=== PATIENT | female | born 1990 | race Caucasian/White ===

== ENCOUNTER 2023-05-29 13:50 | Outpatient (AMB) | payer OTHER, SELFPAY ==
[2023-05-29 13:53] VITALS: BP 114/70; PULSE 67; O2SAT 99; BMI 23.3
--- NOTE | 2023-05-29 13:53 | A.OFFPC_ITS ---
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 Crime Specialist Required: No Allergies No Known Allergies Allergy (Verified 05/29/23 13:53) Medication List - Last Reconciled 05/29/23 by Krystle Vasquez MD [ADRENAL complex 2 caps PO .QD] [GI Microb-X 2 caps PO 2XD] [PRO Bio MED 100 1 cap PO .QD] [Sacharomyces Boulardii 10 1 cap PO .QD] [Colombian black radish PO BID] Tobacco use date assessed: 05/29/23 Dental Screening Dental Screen Date: 05/29/23 Did you have a dental visit in the last 12 months?: Yes Did you have a dental problem in the last 6 months where you did not have access to dental care?: No Was dental information given to patient?: Patient has dentist HPI Manifest Clerk Request Establish Care HPI Details 32-year-old female being seen for the 1s t time. went to [facility] 04/29-05/05/2023 had diarrhea - 05/03-2023, constipation then diarrhea- 4 days. has cold, no fevers, , no sore throat, non productive, PFSH Medical History (Updated 05/29/23 @ 14:18 by Krystle Vasquez MD) COVID-19 virus infection Family History (Updated 05/29/23 @ 14:12 by Krystle Vasquez MD) Mother Breast cancer, Onset Age: 63 Skin cancer Father Skin cancer Social History (Updated 05/29/23 @ 14:13 by Krystle Vasquez MD) Housing: Apartment Alcohol intake: current Comment: once a month 2 drinks Patient Tobacco Use Status: Never used Tobacco Years Smoked: no cigarettes, does marijuana service: No Current occupational status: employed Cognitive needs: No Hearing needs: No Vision needs: No Questionnaire PHQ-9 Over the last 2 weeks, how often have you been bothered by any of the following problems? 1. Little interest or pleasure in doing things: not at all 2. Feeling down, depressed, or hopeless: not at all 3. Trouble falling or staying asleep, or sleeping too much: not at all 4. Feeling tired or having little energy: not at all 5. Poor appetite or overeating: not at all 6. Feeling bad about yourself - or that you are a failure or have let yourself or your family down: not at all 7. Trouble concentrating on things, such as reading the newspaper or watching television: not at all 8. Moving or speaking so slowly that other people could have noticed. Or the opposite - being so fidgety or restless that you have been moving around a lot more than usual: not at all 9. Thoughts that you would be better off or of hurting yourself in some w ay: not at all Total score: 0 Depression Screening Interpretation: Negative Depression Screening Done: Yes Source: Developed by Drs. Ramiro Hendricks, Pat Medrano, Tavares Hodgson and colleagues, with an educational indy from [employer] Thrive Questionnaire Date Thrive assessed: 05/29/23 I am a: Patient What is your living situation today?: I have a steady place to live Within the past 12 months, did the food you bought not last and you didn't have the money to get more?: Never true Within the past 12 months, did you worry whether your food would run out before you got money to buy more?: Never true Do you have trouble paying for medicines?: No Do you have trouble getting transportation to medical appointments?: No Do you have trouble paying your heating and electricity bill?: No Do you have trouble taking care of your child, family member or friend?: No Do you have trouble with day-to-day activities such as bathing, preparing meals, shopping, managing finances, etc.?: No Are you currently unemployed and looking for a job?: No Are you interested in more education?: No Please select the resources that you would like help with: None THRIVE Score: 0 AUDIT C Alcohol Use Questionnaire (AUDIT-C) 1. How often do you have a drink containing alcohol?: Monthly or less 2. How many drinks containing alcohol do you have on a typical day when you are drinking?: 1 or 2 3. How often do you have six or more drinks on one occasion?: Never Total Score: 1 MARCELINA-7 AMB Questionnaire MARCELINA-7 Date MARCELINA - 7 assessed: 05/29/23 Feeling nervous, anxious, or on edge: 0 = Not at all Not being able to stop or control worryin = Not at all Worrying too much about different things: 0 = Not at all Trouble relaxin = Not at all Being so restless that it is hard to sit still: 0 = Not at all Becoming easily annoyed or irritable: 0 = Not at all Feeling afraid as if something awful might happen: 0 = Not at all Total MARCELINA-7 score (0-4 normal; 5-9 mild; 10-14 moderate; 15-21 severe): 0 Source: Developed by Drs. Ramiro Hendricks, Pat Medrano, Tavares Hodgson and colleagues, with an educational indy from [employer] Physical exam (Primary Care) Vital Signs: Last Vital Signs Pulse 67 05/29/23 13:53 BP 114/70 05/29/23 13:53 Pulse Ox 99 05/29/23 13:53 Oxygen Delivery Method Room Air 05/29/23 13:53 BMI result Body Mass Index 23.3 Tobacco/Smoking Status: Tobacco use Status Tobacco use date assessed 05/29/23 05/29/23 13:54 Patient Tobacco Use Status Never used Tobacco 05/29/23 13:54 PHQ-9: PHQ-9 Score PHQ-9: Total score 0 05/29/23 13:54 Depression Screening Interpretation: Negative Thrive Assessment: Date of Thrive Assessment Date Thrive assessed 05/29/23 05/29/23 13:54 Assessment and Plan Assessment & Plan (1) Cervical cancer screening: Code(s): Z12.4 - Encounter for screening for malignant neoplasm of cervix (2) Family history of hypercholesterolemia: Code(s): Z83.42 - Family history of familial hypercholesterolemia Orders: Orders Complete Blood Count Auto Diff Today Z83.42 - Family history of familial hypercholesterolemia Free T4 (Free Thyroxine) Today Z83.42 - Family history of familial hypercholesterolemia Comprehensive Met. Panel Today Z83.42 - Family history of familial hyperch olesterolemia Lipid Panel Today E78.00 - Pure hypercholesterolemia, unspecified, Z83.42 - Family history of familial hypercholesterolemia Thyroid Stimulating Hormone Today Z83.42 - Family history of familial hypercholesterolemia Vitamin B12 and Folate Today Z83.42 - Family history of familial hypercholesterolemia Vitamin D 25-OH Total Today Z83.42 - Family history of familial hypercholesterolemia Referrals BOBBIN WINDER Referral Z12.4 - Encounter for screening for malignant neoplasm of cervix Coding Level of Care Code New Pt Level 4 (79771) Diagnoses Cervical cancer screening Z12.4 Family history of hypercholesterolemia Z83.42
== END 2023-05-29 14:28 | disposition home or self-care (01) ==
PROVIDERS: PCP Internal Medicine; Visit Provider Internal Medicine
DX: Z12.4 Encounter for screening for malignant neoplasm of cervix (principal); Z83.42 Family history of familial hypercholesterolemia
CPT/HCPCS: 99204

== ENCOUNTER 2023-05-29 14:35 | Outpatient (REF) | payer OTHER, SELFPAY ==
[2023-05-29 15:09] LABS: MANUAL DIFF FLAG NO
[2023-05-29 15:31] LABS: Basophils Percent Auto 0.3 % (0-2); Eosinophils Absolute Auto 0.1 X10*3/uL (0.0-0.4); Eosinophils Percent Auto 1.1 % (0-4); Hematocrit 40.2 % (37.0-47.0); Hemoglobin 13.4 g/dl (12.0-16.0); Imm Gran Abs Auto 0.02 X10*3/uL (0.00-0.03); Imm Gran Pct Auto 0.3 % (0.0-0.4); Lymphocytes Absolute Auto 1.6 X10*3/uL (1.2-4.9); Lymphocytes Percent Auto 23.1 % (20-40); Mean Corpuscular HGB Conc 33.3 g/dl (31.0-35.0); Mean Corpuscular Hemoglobin 28.6 pg (27.0-33.0); Mean Corpuscular Volume 85.7 fL (80.0-98.0); Mean Platelet Volume 10.4 fL (9.4-12.3); Monocytes Absolute Auto 0.5 X10*3/uL (0.1-1.2); Neutrophils Absolute Auto 4.8 x10*3/uL (2.0-8.3); Neutrophils Percent Auto 68.2 % (45-73); Platelet Count 162 X10*3/uL (160-400); Red Blood Count 4.69 X10*6/uL (4.20-5.50); Red Cell Distribution Width 12.1 % (11.0-16.0)
[2023-05-29 16:01] LABS: Alanine Aminotransferase 14 U/L (0-31); Albumin Level 4.1 g/dL (3.5-5.0); Alkaline Phosphatase 51 U/L (39-117); Anion Gap 12 (12-20); Aspartate Amino Transferase 15 U/L (5-31); Bilirubin Total 0.7 mg/dL (0.0-1.0); Blood Urea Nitrogen 8 mg/dL (9-16); Calcium 9.1 mg/dL (8.4-10.2); Carbon Dioxide 26 mmol/L (22-29); Chloride 109 mmol/L (96-108); Cholesterol 132 mg/dL (<200); Estimated Glomerular Filt Rate > 60; Glucose Random 82 mg/dL (60-115); HDL Cholesterol 52 mg/dL (>40); LDL Cholesterol Calculated 69 mg/dL (<100); Potassium 4.2 mmol/L (3.3-5.1); Sodium 143 mmol/L (135-145); Total Protein 6.9 g/dL (6.5-8.0); Triglycerides 58 mg/dL (<150)
[2023-05-29 16:17] LABS: Free T4 (Free Thyroxine) 0.93 ng/dL (0.71-1.85); Thyroid Stimulating Hormone 1.04 uIU/mL (0.32-4.0)
[2023-05-29 16:31] LABS: Folate 7.7 ng/mL (> or = 4.0); Vitamin B12 582 pg/mL (200-900)
== END 2023-05-29 14:36 | disposition home or self-care (01) ==
LOC: HO.LAB 14:35
PROVIDERS: PCP Internal Medicine; Visit Provider Internal Medicine
DX: E78.00 Pure hypercholesterolemia, unspecified (principal); Z83.42 Family history of familial hypercholesterolemia
CPT/HCPCS: 36415; 80053; 80061; 82306; 82607; 82746; 84439; 84443; 85025

== ENCOUNTER 2023-08-24 14:26 | Outpatient (REF) | payer OTHER, SELFPAY ==
[2023-08-25 11:35] LABS: CT PCR NOT DETECTED (Not Detect.); NG PCR NOT DETECTED (Not Detect.)
[2023-08-25 12:50] LABS: BV Int Neg Control Negative (Negative); BV Int Pos Control Positive (Positive)
[2023-08-30 02:29] LABS: HPV mRNA E6/E7 rflx Not Detected (Not Detected)
== END 2023-08-24 14:27 | disposition home or self-care (01) ==
LOC: HO.LAB 14:26
PROVIDERS: PCP Internal Medicine; Visit Provider Advanced Practice Midwife
DX: Z01.419 Encounter for gynecological examination (general) (routine) without abnormal findings (principal); Z20.2 Contact with and (suspected) exposure to infections with a predominantly sexual mode of transmission; Z80.3 Family history of malignant neoplasm of breast
CPT/HCPCS: 0353U; 87480; 87510; 87624; 87660; 88142; 99385

== ENCOUNTER 2023-08-24 14:26 | Outpatient (AMB) | payer OTHER, SELFPAY ==
--- NOTE | 2023-08-24 14:27 | MHC.OFFVIS ---
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 They use condoms and her conscientious about it she has also been keeping track of her cycle and has done so for a long time and is been keeping more aware of changes in her cycle. Her mother had breast cancer diagnosed last year and she did have the bracket testing and she is negative and it is not considered familial. 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 [facility] Medical History COVID-19 virus infection Family History Mother Breast cancer, Onset Age: 63 Skin cancer Father Skin cancer Social History Housing: Apartment Alcohol intake: current Comment: once a month 2 drinks Patient Tobacco Use Status: Never used Tobacco Years Smoked: no cigarettes, does marijuana service: No Current occupational status: employed Cognitive needs: No Hearing needs: No Vision needs: No Female Reproductive History Menstrual Age of Menarche: 10 Duration of menses: 6-7 days Date of last menstrual period: 08/10/23 control method: none Total pregnancies: 0 History of abnormal pap smear: No (previous pap done 2010 negative per patient) Physical Exam Vital Signs: Last Vital Signs BP 110/60 08/24/23 14:32 BMI result Body Mass Index 23.5 Const General: healthy appearing, comfortable, no acute distress, well developed and alert Nutritional Appearance: average body habitus Orientation/consciousness: patient oriented x3 Limitations: no limitations HEENT Head: Yes normocephalic Neck Neck: Yes normal visual inspection Thyroid: Thyroid normal Chest Chest palpation & inspection: normal inspection of the chest Breast/axilla inspection: normal inspection of the breasts and normal inspection of the axillae Breast/axilla palpation: normal palpation of the breasts and normal palpation of the axillae Resp Effort & Inspection: normal respiratory effort GI Inspection: Yes normal to inspection, No Abdominal wall edema and No distended Palpation (GI): Soft to palpation and nontender General: Yes bladder normal to palpation External Female Exam: normal external appearance and normal appearance of the urethra Speculum Exam - Vagina: normal appearance of the vagina, normal palpation and normal vaginal discharge Speculum Exam - Cervix: normal appearance of the cervix, normal palpation and nontender Bimanual exam- vagina & uterus: normal bimanual exam, normal palpation, uterine size normal, bladder normal to palpation, consistency normal, normal palpation, uterine mobility normal, uterine shape normal, No Cervical tenderness present, non-tender and no cervical motion tenderness Bimanual Exam- Adnexa, other: normal adnexae, no masses, normal and No adnexal tenderness Neuro General: patient oriented x3 Assessment & Plan Assessment & Plan (1) Cervical cancer screening: Comment: pap done 08/24/23. Code(s): Z12.4 - Encounter for screening for malignant neoplasm of cervix Category: Medical (2) Well woman exam with routine gynecological exam: Code(s): Z01.419 - Encounter for gynecological examination (general) (routine) without abnormal findings Category: Medical (3) Encounter for screening examination for sexually transmitted disease: Code(s): Z11.3 - Encounter for screening for infections with a predominantly sexual mode of transmission Category: Medical (4) control counseling: Comment: Uses condoms and cycle awareness, happy with these. Code(s): Z30.09 - Encounter for other general counseling and advice on contraception Category: Medical (5) Family history of breast cancer in first degree relative: Comment: her mom was dx'd age 63, is BRCA neg. Code(s): Z80.3 - Family history of malignant neoplasm of breast Category: Medical Plan -----Discussed in this visit the following: healthy balanced diet, regular and consistent exercise, getting recommended health screens, doing the best she can for her particular health concerns, kegel exercises, pap smear screening and followup recommendations, mammography screening and SBE, normal changes in cycles in her life stage--- . Reviewed cycles and the changes to be aware of she is increasing her awareness and is happy with the self knowledge. 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 Discussed that normally mammograms started age 40 but if she is told otherwise then she should speak to her primary care provider about possibly getting an earlier screen. Her mom is BRCA negative so that is good Discussed potential future childbearing and increased risks with increased age, and also discussed all of the options in this area for childbearing. Coding Level of Care Code New Pt Prev Care 18-39yr([id number] Diagnoses Cervical cancer screening Z12.4 Well woman exam with routine gynecological exam Z01.419 Encounter for screening examination for sexually transmitted disease Z11.3 control counseling Z30.09 Family history of breast cancer in first degree relative Z80.3
[2023-08-24 14:32] VITALS: BP 110/60; BMI 23.5
== END 2023-08-24 15:33 | disposition home or self-care (01) ==
PROVIDERS: PCP Internal Medicine; Visit Provider Advanced Practice Midwife
DX: Z12.4 Encounter for screening for malignant neoplasm of cervix (principal); Z01.419 Encounter for gynecological examination (general) (routine) without abnormal findings; Z11.3 Encounter for screening for infections with a predominantly sexual mode of transmission; Z30.09 Encounter for other general counseling and advice on contraception; Z80.3 Family history of malignant neoplasm of breast
CPT/HCPCS: 99385

== ENCOUNTER 2024-02-27 12:36 | Outpatient (AMB) | payer OTHER, SELFPAY ==
--- NOTE | 2024-02-27 12:37 | A.OFFPC_ITS ---
Vital Signs 3 02/27/24 12:38 Height 5 ft 7 in Weight 146 lb 0.6 oz BMI 22.9 BP 112/60 Blood Pressure Location Lt brachial Position Sitting Pulse 76 Pulse Source Pulse Oximeter Pulse Oximetry (%) 99 Oxygen Delivery Method Room Air Intake Visit Reasons: PE Allergies No Known Allergies Allergy (Verified 02/27/24 12:38) Medication List - Last Reconciled 02/27/24 by Krystle Vasquez MD [ADRENAL complex 2 caps PO .QD] Tobacco use date assessed: 02/27/24 Dental Screening Dental Screen Date: 05/29/23 Did you have a dental visit in the last 12 months?: Yes Did you have a dental problem in the last 6 months where you did not have access to dental care?: No Was dental information given to patient?: Patient has dentist HPI PE 2 HPI0 Details 33-year-old female with coming in for ph ysical exam. Patient was last seen in 05/20/2023. [facility] Medical History (Updated 02/27/24 @ 12:50 by Krystle Vasquez MD) Acute gastroenteritis Cervical cancer screening Family history of hypercholesterolemia Well woman exam with routine gynecological exam Encounter for screening examination for sexually transmitted disease control counseling COVID-19 virus infection Family History Mother Breast cancer, Onset Age: 63 Skin cancer Father Skin cancer Social History Housing: Apartment Alcohol intake: current Comment: once a month 2 drinks Patient Tobacco Use Status: Never used Tobacco Years Smoked: no cigarettes, does marijuana service: No Current occupational status: employed Cognitive needs: No Hearing needs: No Vision needs: No Female Reproductive History Menstrual Age of Menarche: 10 Questionnaire PHQ-9 Over the last 2 weeks, how often have you been bothered by any of the following problems? 1. Little interest or pleasure in doing things: several days 2. Feeling down, depressed, or hopeless: several days 3. Trouble falling or staying asleep, or sleeping too much: several days 4. Feeling tired or having little energy: several days 5. Poor appetite or overeating: several days 6. Feeling bad about yourself - or that you are a failure or have let yourself or your family down: several days 7. Trouble concentrating on things, such as reading the newspaper or watching television: not at all 8. Moving or speaking so slowly that other people could have noticed. Or the opposite - being so fidgety or restless that you have been moving around a lot more than usual: not at all 9. Thoughts that you would be better off or of hurting yourself in some way: not at all Total score: 6 Depression Screening Interpretation: Negative Depression Screening Done: Yes 35339 - PHQ-9 Billing: Yes Source: Developed by Drs. Ramiro Hendricks, Pat Medrano, Tavares Hodgson and colleagues, with an educational indy from [employer]. Thrive Questionnaire Date Thrive assessed: 05/29/23 I am a: Patient What is your living situation today?: I have a steady place to live Within the past 12 months, did the food you bought not last and you didn't have the money to get more?: Never true Within the past 12 months, did you worry whether your food would run out before you got money to buy more?: Never true Do you have trouble paying for medicines?: No Do you have trouble getting transportation to medical appointments?: No Do you have trouble paying your heating and electricity bill?: No Do you have trouble taking care of your child, family member or friend?: No Do you have trouble with day-to-day activities such as bathing, preparing meals, shopping, managing finances, etc.?: No Are you currently unemployed and looking for a job?: No Are you interested in more education?: Yes Please select the resources that you would like help with: None Currently or been in a relationship where the following occur: No concerns reported THRIVE Score: 0 AUDIT C Alcohol Use Questionnaire (AUDIT-C) 1. How often do you have a drink containing alcohol?: Monthly or less 2. How many drinks containing alcohol do you have on a typical day when you are drinking?: 1 or 2 3. How often do you have six or more drinks on one occasion?: Less than monthly Total Score: 2 MARCELINA-7 AMB Questionnaire MARCELINA-7 Date MARCELINA - 7 assessed: 02/27/24 Feeling nervous, anxious, or on edge: 1 = Several days Not being able to stop or control worryin = Not at all Worrying too much about different things: 0 = Not at all Trouble relaxin = Not at all Being so restless that it is hard to sit still: 0 = Not at all Becoming easily annoyed or irritable: 1 = Several days Feeling afraid as if something awful might happen: 0 = Not at all Total MARCELINA-7 score (0-4 normal; 5-9 mild; 10-14 moderate; 15-21 severe): 2 Source: Developed by Drs. Ramiro Hendricks, Pat Medrano, Tavares Hodgson and colleagues, with an educational indy from [employer]. Review of Systems Const Denies poor appetite and Denies weakness Eyes Denies no additional complaints ENT Reports Normal hearing present, Denies dizziness, Denies nasal congestion, Denies tinnitus and Denies sore throat Card Denies chest pain, Denies syncope, Denies rapid heart rate and Denies dyspnea Resp Denies cough and Denies dyspnea GI Denies change in stool character, Reports constipation, Denies diarrhea, Denies nausea and Denies vomiting Denies urinary frequency, Denies difficulty voiding and Denies dysuria Neuro Reports Normal hearing present, Denies confusion, Denies dizziness, Denies syncope and Denies weakness Psych Denies confusion Physical exam (Primary Care) Vital Signs: Last Vital Signs Pulse 76 02/27/24 12:38 BP 112/60 02/27/24 12:38 Pulse Ox 99 02/27/24 12:38 Oxygen Delivery Method Room Air 02/27/24 12:38 BMI result Body Mass Index 22.9 Tobacco/Smoking Status: Tobacco use Status Tobacco use date assessed 02/27/24 02/27/24 12:46 Patient Tobacco Use Status Never used Tobacco 02/27/24 12:38 PHQ-9: PHQ-9 Score PHQ-9: Total score 6 02/27/24 12:46 Depression Screening Interpretation: Negative Thrive Assessment: Date of Thrive Assessment Date Thrive assessed 05/29/23 02/27/24 12:38 Currently or been in a relationship where the following occur: No concerns reported Const General: No confusion Orientation/consciousness: No confusion HENMT Head: Yes normocephalic Ears: external ears normal and TM's normal bilaterally Face and sinus: Yes normal facial exam Mouth: moist mucous membranes Throat: Yes tonsils normal Eyes Conjunctivae: conjunctivae normal Pupils: Equal, round and reactive pupils present and Pupil accommodation reflex normal Direct Ophthalmoscopy: normal light reflex Neck Neck: No lymphadenopathy Thyroid: Thyroid normal Chest Chest palpation & inspection: normal inspection of the chest Resp Effort & Inspection: normal respiratory effort and no audible wheezes Auscultation: clear to auscultation bilaterally, no crackles, no wheezes and lung sounds not diminished Cardio Rate: regular rate Rhythm: regular rhythm Peripheral pulses: radial pulses present and dorsalis pedis present GI Palpation (GI): no masses Auscultation: normal bowel sounds and normoactive bowel sounds Rectal Exam - Female: deferred Back/Spine/Pelvis Back/spine/pelvis image: 2 1. 2 cm round mass noted -n cyst Skin General skin exam: no rashes or lesions noted Rashes: no rashes Neuro General: No confusion Cranial nerves: Yes Equal, round and reactive pupils present and Yes Normal hearing present Cognition (Neuro): normal cognition Gait exam (Neuro): Normal gait present Motor exam (neuro): 5/5 motor strength present throughout Deep tendon reflexes (DTR's): Right brachioradialis reflex intensity grade: 2+, Left brachioradialis reflex intensity grade: 2+, Right patellar reflex intensity grade: 2+ and Left patellar reflex intensity grade: 2+ Extrem General: No edema Coding Level of Care Code Est Pt Prev Care 18-39y(65637) Diagnoses Annual physical exam Z00.00 Vitamin D deficiency E55.9 Assessment & Plan Assessment & Plan (1) Annual physical exam: Code(s): Z00.00 - Encounter for general adult medical examination without abnormal findings Category: Medical Plan: Patient is advised to eat healthy, keep well hydrated, keep active and have adequate sleep. (2) Vitamin D deficiency: Code(s): E55.9 - Vitamin D deficiency, unspecified Category: Medical Plan: Advised to take vitamin-D 3252-3172 units once a day
[2024-02-27 12:38] VITALS: BP 112/60; PULSE 76; O2SAT 99; BMI 22.9
== END 2024-02-27 13:06 | disposition home or self-care (01) ==
LOC: HO.HMCH 12:37
PROVIDERS: PCP Internal Medicine; Visit Provider Internal Medicine
DX: Z00.00 Encounter for general adult medical examination without abnormal findings (principal); E55.9 Vitamin D deficiency, unspecified

== ENCOUNTER → 2024-02-27 12:36 | Outpatient (BNVA) | payer OTHER, SELFPAY | PROVIDERS: PCP Internal Medicine; Visit Provider Internal Medicine | DX: Z00.00 Encounter for general adult medical examination without abnormal findings (principal); E55.9 Vitamin D deficiency, unspecified | CPT/HCPCS: 96127; 99395 ==

== ENCOUNTER 2024-07-12 18:21 | Emergency (ER) | payer OTHER, SELFPAY ==
[2024-07-12 18:35] VITALS: BP 129/78; PULSE 81; RESP 18; TEMP 36.8; O2SAT 97; BMI 23.5
--- NOTE | 2024-07-12 18:48 | ED_ITS ---
HPI - General Adult General Chief complaint: Extremity Injury, Lower Stated complaint: left ankle injury Time Seen by Provider: 07/12/24 18:48 Source: patient and other (patient's fiance) Mode of arrival: ambulatory (on crutches) Limitations: no limitations History of Present Illness ED Provider: Tran Ku PA-C HPI narrative: Patient is a 34 year old assigned female at with no reported medical history presenting to the emergency department today with a possible left Achilles injury. 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 Patient states that she went to stand and couldn't bear any weight on the left lower extremity. Patient states that she was seen at an Urgent Care and they recommended coming to the ER. Patient denies any dizziness, lightheadedness, abdominal pain, nausea, vomiting, fever, chills, blurry vision, double vision, loss of vision, chest pain, difficulty breathing, shortness of breath, back pain, night sweats, pain with urination, increased urinary frequency, increased urinary urgency, blood in her urine or stool, syncope or a near syncopal episode, bowel incontinence, bladder incontinence, or any other complaints at this time. Relieving factors: none Exacerbating factors: other (weight bearing on the left lower extremity) Associated symptoms: denies other symptoms Treatments prior to arrival: splint (posterior short leg applied by urgent care) Related Data Home Medications ?Medication ?Instructions ?Recorded ?Confirmed ADRENAL complex 2 cap PO .QD 05/29/23 02/27/24 Allergies Allergy/AdvReac Type Severity Reaction Status Date / Time No Known Allergies Allergy Verified 07/12/24 18:42 Review of Systems Constitutional: Constitutional: Reports no additional constitutional complaints, Denies chills, Denies fever(s) and Denies night sweats Eyes: Eyes: Reports no additional eye complaints, Denies blurry vision, Denies change in vision, Denies diplopia, Denies eye discharge, Denies loss of vision and Denies eye pain ENT: Denies dizziness Cardiovascular: Cardiovascular: Reports no additional cardiovascular complaints, Denies chest pain, Denies lightheadedness, Denies Loss of Consciousness and Denies dyspnea Respiratory: Respiratory: Reports no additional respiratory complaints and Denies dyspnea Gastrointestinal: Gastrointestinal: Reports no additional gastrointestinal complaints, Denies abdominal pain, Denies melena, Denies hematochezia, Denies change in bowel habits and Denies change in stool character Genitourinary: Genitourinary: Denies hematuria, Denies urinary frequency, Denies dysuria, Denies urinary incontinence, Denies urinary hesitancy and Denies urinary urgency Musculoskeletal: Musculoskeletal: Reports no additional musculoskeletal complaints, Denies numbness and Denies tingling Comments: left lower leg pain Neurologic: Denies dizziness, Denies loss of vision, Denies numbness and Denies tingling Psychiatric: Psychiatric: Reports no additional psychiatric complaints Endocrine: Endocrine: Reports no additional endocrine complaints Hematologic/Lymphatic: Hematologic/Lymphatic: Reports no additional hematologic/lymphatic complaints Allergic/Immunologic: Allergic/Immunologic: Reports no additional allergic/immunologic complaints PMFSH Past Medical History Attestation statement: The following information was validated with the patient. (all information validated with the patient's fiance) Source: old records reviewed, nursing notes reviewed and other (patient's fiance provided additional history and confirmed the history provided by the patient.) Medical History Acute gastroenteritis Cervical cancer screening Family history of hypercholesterolemia Well woman exam with routine gynecological exam Encounter for screening examination for sexually transmitted disease control counseling COVID-19 virus infection Family History Family History Mother Breast cancer, Onset Age: 63 Skin cancer Father Skin cancer Social History Social History Housing: Apartment Alcohol intake: current Comment: once a month 2 drinks Patient Tobacco Use Status: Never used Tobacco Years Smoked: no cigarettes, does marijuana Advance Directives: No Advance Directives Information Provided: No Do you have a plan to hurt others: No Plan service: No Current occupational status: employed Cognitive needs: No Hearing needs: No Vision needs: No Physical Exam ED Vital Signs: Vital Signs - 24 hr 07/12/24 18:35 Temperature 98.3 F Pulse Rate 81 Respiratory Rate 18 Blood Pressure 129/78 Pulse Oximetry 97 Oxygen Delivery Method Room Air BMI result Body Mass Index 23.5 Const General: cooperative, no acute distress, alert and awake Nutritional Appearance: well nourished Orientation/consciousness: patient oriented x3 Limitations: no limitations HENMT Head: Yes normal to inspection and Yes atraumatic Ears: hearing grossly normal bilaterally and external ears normal General nose exam: Normal external nose present, no nasal discharge noted and no epistaxis Face and sinus: Yes normal facial exam, No abrasion and No laceration Mouth: Normal oral and palatal mucosa present, no drooling and no muffled voice Eyes General: appearance normal, both eyes and all related structures Periorbital: periorbital findings normal Eyelids: Yes eyelids normal Conjunctivae: conjunctivae normal Pupils: Equal, round and reactive pupils present EOM: EOMs intact bilaterally Neck Neck: Yes normal visual inspection, Yes full ROM and Yes no lymphadenopathy Chest Chest palpation & inspection: normal inspection of the chest Resp Effort & Inspection: normal respiratory effort and able to speak in complete sentences GI Inspection: Yes normal to inspection Neuro General: patient oriented x3, moves all extremities and CN's II-XI intact bilaterally Cranial nerves: Yes Equal, round and reactive pupils present Cognition (Neuro): normal cognition Extrem Other: patient has a noticeable divot to her left posterior leg where her Achilles tendon inserts into the foot with a positive Wylie test. General: Yes capillary refill normal Psych Appearance: grossly normal Mental Status: mental status grossly normal Affect: normal affect Attitude: cooperative Thought process: Normal thought process present Thought content: Normal thought content present Insight: Good insight present (Psych) Procedures Orthopedic Splinting/Casting Injury #1: Side: left Lower Extremity Injury Location: lower leg Lower Extremity Immobilizer: posterior splint (45 degrees in plantar flexion) Medical Decision Making Medical Decision Making MDM Narrative: Patient is a 34 year old assigned female at with no reported medical history presenting to the emergency department today with a possible left Achilles injury. Patient's physical exam was as noted in the physical exam portion of this note. Patient's clinical presentation is most consistent with a rupture of the left Achilles tendon. I explained my physical exam findings to the patient and the patient's fiance. I answered all questions asked by the patient and the patient's fiance. Patient's left lower leg was placed in a posterior short leg splint with the foot in 45 degrees plantar flexion, without incident. Patient's PMS was intact prior to and after splint placement. Patient already had crutches with her which she demonstrated she could appropriately use. I spoke to the orthopedic team who agreed with splint and follow up outpatient plan. I stressed the importance of the patient taking her medication as directed (either prescribed or as the over the counter packaging recommends). I stressed the importance of the patient following up with her primary care provider and an orthopedic provider. I stressed the importance of the patient returning to the emergency department immediately if her symptoms were to worsen or if she were to develop any dizziness, shortness of breath, difficulty breathing, chest pain, blurry vision, loss of vision, nausea, vomiting, abdominal pain, fever, chills, back pain, or any other complaints. Patient and the patient's fiance verbalized agreement and understanding with this treatment plan and discharge. Differential Diagnosis Differential Diagnoses: The differential diagnosis associated with the presentation includes Achilles tendon rupture Achilles tendon injury Admission/Observation Consideration of admission/observation: Escalation of care including admission/observation considered Patient would have been admitted to the hospital had her work up had any findings where hospital admission was appropriate and her clinical presentation warranted hospital admission. Consult Healthcare Provider Management of the patient was discussed with: Program Manager Slp (spoke with the orthopedic team as noted in the MDM Rationale portion of this note.) Independent Historian Clinical information obtained from an independent historian. History obtained from or confirmed by: Other (patient's fiance provided additional history and confirmed the history provided by the patient.) Tests considered The following testing was considered but not selected: I considered obtaining an ultrasound of the left lower extremity to confirm an Achilles rupture tendon / injury however, the patient's clinical presentation is consistent with the diagnosis without further imaging. I discussed this with the patient and her fiance who verbalized understanding and agreement. Discharge Plan Discharge Clinical Impression: Achilles tendon rupture Patient Disposition: Home, Self-Care Instructions: Crutch Instructions (ED), Achilles Tendon Rupture (ED) Additional Instructions: Do NOT bear any weight on the left lower extremity. Do NOT get your splint wet. Do NOT remove your splint. If you have any change in sensation, movement, or color of your left toes - you may loosen the outer PHANI wraps. If you find yourself loosening the PHANI wraps to the point of seeing the white splint material underneath - STOP and proceed to your closest Emergency Department, immediately. Follow up with your primary care provider and the orthopedic team. Return to the emergency department immediately if your symptoms worsen or if you develop any numbness, tingling, dizziness, shortness of breath, difficulty alirio thing, chest pain, blurry vision, loss of vision, nausea, vomiting, abdominal pain, fever, chills, back pain, or any other complaints. Please see the information below about our Patient Portal. If you are not yet enrolled in the [facility] Patient Portal, you will receive an enrollment email invitation following your visit to any [facility] setting. You may also self-enroll in the Patient Portal by visiting our website: [email or web address] The following information is required to access the Patient Portal: - Your [facility] Medical Record Number - Your personal home email address (must match what is in your electronic medical record, Registration staff can assist with this) - Name - Date of Capabilities of the Patient Portal: - Message some providers - View upcoming appointments - Access your health summary, medical history, and visit history - View current conditions and allergies - View procedure and lab results - View your medications, including guidelines, side effects, and precautions - Complete pre-appointment questionnaires requested by your provider - Ready summary reports of your office visits and procedures To access the Patient Portal Mobile Priya, follow these directions: - Search Curiously in the Priya Store or Curetis Store - Download the Priya - Search for [facility] - Enter your login/password Prescriptions: No Action ADRENAL complex 2 cap PO .QD Referrals: [facility] Orthopedic Surgeons [Provider Group] (Call to establish and follow up with the orthopedic team. ) Pedro,Krystle Westbrook MD [Primary Care Provider] - Stand Alone Forms: Work/School Release Print Language: Chinese
[2024-07-12 19:22] VITALS: BP 129/78; PULSE 81; RESP 18; TEMP 36.8; O2SAT 97
== END 2024-07-12 19:23 | disposition home or self-care (01) ==
PROVIDERS: Emergency Provider Emergency Medicine; PCP Internal Medicine
DX: S86.012A Strain of left Achilles tendon, initial encounter (principal); M79.605 Pain in left leg; X50.3XXA Overexertion from repetitive movements, initial encounter; Y93.41 Activity, dancing; Y93.9 Activity, unspecified; Y92.9 Unspecified place or not applicable; Y99.8 Other external cause status; Z79.899 Other long term (current) drug therapy
CPT/HCPCS: 29505; 99282; 99284

== ENCOUNTER 2024-07-15 09:35 | Outpatient (AMB) | payer OTHER, SELFPAY ==
--- NOTE | 2024-07-15 09:42 | MHC.OFFVIS ---
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 She states that she is feeling a lot of soreness. Denies numbness and tingling in her toes, however when the first injury happened she had tingling/warm sensation in her heal. 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 Jennifer florence is a 34-year-old female with no past medical history. She presents to the office today for evaluation of a left Achilles tendon rupture that occurred on 07/12/2024. 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 She reports that on 07/12/2024 she was performing a dance combination while leaving from her left foot and landing again on the left foot. During this attempt the patient felt a pop in the calf followed by pain. She was able to finish instructing the dance class for the evening. She presented to the emergency department where upon further exam she was noted to have a palpable deformity at the Achilles tendon and instructions she had a Achilles tendon rupture. She was placed in a posterior splint with the foot in plantar flexion and instructed to follow up with orthopedics outpatient for further evaluation and treatment. [facility] Medical History Acute gastroenteritis Cervical cancer screening Family history of hypercholesterolemia Well woman exam with routine gynecological exam Encounter for screening examination for sexually transmitted disease control counseling COVID-19 virus infection Family History Mother Breast cancer, Onset Age: 63 Skin cancer Father Skin cancer Social History (Updated 07/15/24 @ 09:45 by Troy Morales) Housing: Apartment Alcohol intake: current Comment: once a month 2 drinks Patient Tobacco Use Status: Never used Tobacco Years Smoked: no cigarettes, does marijuana service: No Current occupational status: employed 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 Cognitive needs: No Hearing needs: No Vision needs: No Female Reproductive History Menstrual Age of Menarche: 10 Review of Systems Const All systems reviewed & are unremarkable except as noted in HPI and below Physical Exam Vital Signs: BMI result Body Mass Index 23.5 Const General: cooperative, healthy appearing and no acute distress Resp Effort & Inspection: normal respiratory effort and able to speak in complete sentences Cardio Rate: regular rate Peripheral pulses: Peripheral pulses 2+ throughout Skin Lesions: no lesions Rashes: no rashes Extrem Other: Left lower extremity visible and palpable deformity at the Achilles tendon attachment. Tenderness to palpation over the associated area. Positive Wylie's test. NVI. Office Procedures Casting/Splints [id number] Leg splint application Procedure code (CPT) selection complete Assessment & Plan Assessment & Plan (1) Acute rupture of Achilles tendon: Code(s): S86.019A - Strain of unspecified Achilles tendon, initial encounter Category: Medical Plan Ms. Jennifer florence is a 34-year-old female with no past medical history. She presents to the office today for evaluation of a left Achilles tendon rupture that occurred on 07/12/2024. 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 She reports that on 07/12/2024 she was performing a dance combination while leaving from her left foot and landing again on the left foot. During this attempt the patient felt a pop in the calf followed by pain. She was able to finish instructing the dance class for the evening. She presented to the emergency department where upon further exam she was noted to have a palpable deformity at the Achilles tendon and instructions she had a Achilles tendon rupture. She was placed in a posterior splint with the foot in plantar flexion and instructed to follow up with orthopedics outpatient for further evaluation and treatment. While in the office today, Dr. Arceo was available to see the patient with me in the office in a collaborative treatment plan was created. The patient is interested in seeing a foot and ankle specialist for this as her professional career revolves around dancing. We will fully support this patient and trying to advocate for an appointment at [facility] with Dr. Dinh for further evaluation and treatment. I placed a stat referral while in the office today. Our office will reach out to their office to facilitate an urgent appointment this week. The patient was educated on the urgency of surgical intervention if she so chooses to move forward. I provided her with my business card as well as Dr. Arceo's if she has any questions she can reach out to us. Patient was placed back into a custom-molded posterior splint held in plantar flexion. Orders: Referrals Orthopedics Referral S86.019A - Strain of unspecified Achilles tendon, initial encounter Coding Level of Care Code New Pt Level 4 (20905) Diagnoses Acute rupture of Achilles tendon S86.019A CPT Codes Splint - CPT: 74525-Jomlg Leg splint application ([id number])
[2024-07-15 09:46] VITALS: BMI 23.5
== END 2024-07-15 10:38 | disposition home or self-care (01) ==
LOC: HO.HOS 09:36
PROVIDERS: PCP Internal Medicine; Visit Provider Physician Assistant
DX: S86.012A Strain of left Achilles tendon, initial encounter (principal)
CPT/HCPCS: 29515; 99204

== ENCOUNTER → 2024-07-15 09:35 | Outpatient (BNVA) | payer OTHER, SELFPAY | PROVIDERS: PCP Internal Medicine; Visit Provider Physician Assistant | DX: S86.019A Strain of unspecified Achilles tendon, initial encounter (principal) | CPT/HCPCS: 29515; 99202 ==

== ENCOUNTER 2024-08-26 11:21 | Outpatient (AMB) | payer OTHER, SELFPAY ==
--- NOTE | 2024-08-26 11:56 | MHC.OFFVIS ---
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 She and her partner use condoms for control and she has no concerns whatsoever about STDs and she had a normal Pap smear last year.. Her mother is in year 2 of her breast cancer recovery journey. She tested BRCA negative and the diagnosis who is in her early 60s. 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 This year doing a jump on July 12 she tore her left Achilles tendon 3/[address]. She did not need surgery she currently is immobilized with a boot and getting physical therapy and journeying through the healing and recovery process. [facility] Medical History (Updated 08/26/24 @ 12:55 by Lakeshia Demarco CNM) Well woman exam with routine gynecological exam Acute gastroenteritis Cervical cancer screening Family history of hypercholesterolemia Encounter for screening examination for sexually transmitted disease control counseling COVID-19 virus infection Family History Mother Breast cancer, Onset Age: 63 Skin cancer Father Skin cancer Social History Housing: Apartment Alcohol intake: current Comment: once a month 2 drinks Patient Tobacco Use Status: Never used Tobacco Years Smoked: no cigarettes, does marijuana Patient : No service: No Current occupational status: employed 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 Cognitive needs: No Hearing needs: No Vision needs: No Female Reproductive History Menstrual Age of Menarche: 10 Duration of menses: 3-5 days Date of last menstrual period: 08/12/24 control method: none Total pregnancies: 0 Date of last pap smear: 08/24/23 (negative pap smear, negative p) History of abnormal pap smear: No Physical Exam Vital Signs: Last Vital Signs BP 120/70 08/26/24 12:01 BMI result Body Mass Index 24.3 Const General: healthy appearing, comfortable, no acute distress, well developed and alert Nutritional Appearance: average body habitus Orientation/consciousness: patient oriented x3 Limitations: no limitations HEENT Head: Yes normocephalic Neck Neck: Yes normal visual inspection Thyroid: Thyroid normal Chest Chest palpation & inspection: normal inspection of the chest Breast/axilla inspection: normal inspection of the breasts and normal inspection of the axillae Breast/axilla palpation: normal palpation of the breasts and normal palpation of the axillae Resp Effort & Inspection: normal respiratory effort GI Inspection: Yes normal to inspection, No Abdominal wall edema and No distended Palpation (GI): Soft to palpation and nontender Other: External exam within normal limits vagina pink and moist with normal healthy appearing whitish mucus cervix nulliparous pink smooth healthy appearing with normal clear white mucus, consistent with very recent ovulation, uterus small mobile nontender anteverted to midposition adnexa nontender good muscle tone with Kegel. General: Yes bladder normal to palpation External Female Exam: normal external appearance and normal appearance of the urethra Speculum Exam - Vagina: normal appearance of the vagina, normal palpation and normal vaginal discharge Speculum Exam - Cervix: normal appearance of the cervix, normal palpation and nontender Bimanual exam- vagina & uterus: normal bimanual exam, normal palpation, uterine size normal, bladder normal to palpation, consistency normal, normal palpation, uterine mobility normal, uterine shape normal, No Cervical tenderness present, non-tender and no cervical motion tenderness Bimanual Exam- Adnexa, other: normal adnexae, no masses, normal and No adnexal tenderness Neuro General: patient oriented x3 Assessment & Plan Assessment & Plan (1) Family history of breast cancer in first degree relative: Comment: her mom was dx'd age 63, is BRCA neg. Code(s): Z80.3 - Family history of malignant neoplasm of breast Category: Medical (2) Acute rupture of Achilles tendon: Comment: In her recovery process, wearing boot, getting physical therapy in [place]. Code(s): S86.019A - Strain of unspecified Achilles tendon, initial encounter Category: Medical (3) Well woman exam with routine gynecological exam: Code(s): Z01.419 - Encounter for gynecological examination (general) (routine) without abnormal findings Category: Medical Plan -----Discussed in this visit the following: healthy balanced diet, regular and consistent exercise, getting recommended health screens, doing the best she can for her particular health concerns, kegel exercises, pap smear screening and followup recommendations, mammography screening and SBE, normal changes in cycles in her life stage--- . Discussed her healing process and its lessons that it is teaching her and that she shared, Is no concerns at all about STIs Pap smear was negative last year so no need to repeat that. She is happy with condom use. She and her fiance have a plan to at some point when they are stable in their marriage start childbearing but not yet. Mammograms would start for her at age 40 even with maternal history, unless there is new information in the future. Coding Level of Care Code Est Pt Prev Care 18-39y(28891) Diagnoses Family history of breast cancer in first degree relative Z80.3 Acute rupture of Achilles tendon S86.019A Well woman exam with routine gynecological exam Z01.419
[2024-08-26 12:01] VITALS: BP 120/70; BMI 24.3
== END 2024-08-26 12:52 | disposition home or self-care (01) ==
LOC: HO.HWS 11:22
PROVIDERS: PCP Internal Medicine; Visit Provider Advanced Practice Midwife
DX: Z01.419 Encounter for gynecological examination (general) (routine) without abnormal findings (principal); Z80.3 Family history of malignant neoplasm of breast
CPT/HCPCS: 99395; 99459

== ENCOUNTER → 2024-08-26 11:21 | Outpatient (BNVA) | payer OTHER, SELFPAY | PROVIDERS: PCP Internal Medicine; Visit Provider Advanced Practice Midwife | DX: Z01.419 Encounter for gynecological examination (general) (routine) without abnormal findings (principal); S86.019A Strain of unspecified Achilles tendon, initial encounter; X58.XXXA Exposure to other specified factors, initial encounter; Y93.9 Activity, unspecified; Y92.9 Unspecified place or not applicable; Y99.9 Unspecified external cause status; Z80.3 Family history of malignant neoplasm of breast | CPT/HCPCS: 99395; 99459 ==

== ENCOUNTER 2024-12-17 09:52 | Outpatient (AMB) | payer OTHER, SELFPAY ==
--- OUTSIDE RECORDS SUMMARY | 2024-12-13 14:15 | XMS_ITS | Encounter Summary ---
Author Organization [facility] Address [address] [place] [address] Phone Care Team Providers Care Grain Thresher Name Role Phone Krystle Vasquez MD Primary Care Provider [phone] Reason for Visit * Physical Therapy (Within 3 days (urgent)) - Authorized Specialty Diagnoses / Procedures Referred By Contac t Referred To Contact Physical Therapy Diagnoses Rupture of left Achilles tendon, initial encounter Nathan Shea MD Phone: tel: fax: [email or web address] [address] [address] Phone: tel: Referral ID Status Reason Start Date Expiration Date V isits Requested Visits Authorized [id number] Authorized 07/22/2024 04/30/2025 29 29 Encounter Details Date Type Department Care Team (Latest Contact Info) Description 12/13/2024 2:15 PM EDT Office Visit [facility] [address] [place] [address] Nathan Shea MD [address] [place] [address] [facility] [place] [address] [email or web address] Keven Kennedy, PT [address] [place] [address] [email or web address] Acute left ankle pain (Primary Dx) Social History Tobacco Use Types Packs/Day Years [...] as of this encounter Plan of Treatment Upcoming Encounters Date Type Department Care Team (Late st Contact Info) Description 12/27/2024 11:45 AM EDT Office Visit [address] [address] Nathan Shea MD 4 [facility], [place] [address] Keven Bradley, PT [address] [place] [address] [email or web address] 02/03/2025 11:00 AM EDT Office Visit [address] [address] Keven Bradley, PT [address] [place] [address] [email or web address] 02/24/2025 3:45 PM EDT Office Visit [address] [address] Nathan Shea MD [address] [place] [address] Orthopedics [facility], [place], [place] [id number] [email or web address] Keven Bradley, PT [address] [place] [address] [email or web address] documented as of this encounter Visit Diagnoses Diagnosis Acute left ankle pain- Primary documented in this encounter Care Teams Grain Thresher Relationship Specialty Start Date End Date Pedro, Krystle Jay MD [address] [place] [address] [place] [phone] PCP - General Internal Medicine 07/12/24 documented as of this encounter Additional Source Comments The information contained in this document represents components of the legal health record. It is not the complete legal health record.[facility]
--- NOTE | 2024-12-17 09:54 | MHC.PC.OV ---
Vital Signs 12/17/24 09:55 Height 5 ft 7 in Weight 162 lb BMI 25.4 BP 110/62 Blood Pressure Location Lt brachial Position Sitting Pulse 71 Pulse Source Pulse Oximeter Pulse Oximetry (%) 98 Oxygen Delivery Method Room Air Intake Visit Reasons: Eye Infection Allergies No Known Allergies Allergy (Verified 12/17/24 09:56) Tobacco use date assessed: 12/17/24 Dental Screening Dental Screen Date: 12/17/24 Did you have a dental visit in the last 12 months?: Yes Did you have a dental problem in the last 6 months where you did not have access to dental care?: No Was dental information given to patient?: Patient has dentist HPI Eye Infection HPI Details eye infection L months ago - [facility] Medical History (Updated 12/17/24 @ 10:18 by Krystle Vasquez MD) Well woman exam with routine gynecological exam Acute gastroenteritis Cervical cancer screening Family history of hypercholesterolemia Encounter for screening examination for sexually transmitted disease control counseling COVID-19 virus infection Family History (Updated 12/17/24 @ 09:57 by Ghazal Hilario CMA) Mother Breast cancer, Onset Age: 63 Skin cancer Father Skin cancer Social History Housing: Apartment Alcohol intake: current Comment: once a month 2 drinks Patient Tobacco Use Status: Never used Tobacco Tobacco use type: Cigarette Years Smoked: no cigarettes, does marijuana e-Cigarette/Vaping Use: Never Used Second Hand Smoke Exposure: No service: No Current occupational status: employed 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 1. Little interest or pleasure in doing things: several days 2. Feeling down, depressed, or hopeless: not at all 3. Trouble falling or staying asleep, or sleeping too much: several days 4. Feeling tired or having little energy: several days 5. Poor appetite or overeating: several days 6. Feeling bad about yourself - or that you are a failure or have let yourself or your family down: not at all 7. Trouble concentrating on things, such as reading the newspaper or watching television: not at all 8. Moving or speaking so slowly that other people could have noticed. Or the opposite - being so fidgety or restless that you have been moving around a lot more than usual: not at all 9. Thoughts that you would be better off or of hurting yourself in some way: not at all Total score: 4 Depression Screening Interpretation: Positive Depression Screening Done: Yes Source: Developed by Drs. Ramiro Hendricks, Pat Medrano, Tavares Hodgson and colleagues, with an educational indy from [employer]. Thrive Questionnaire Date Thrive assessed: 12/17/24 I am a: Patient What is your living situation today?: I have a steady place to live Within the past 12 months, did the food you bought not last and you didn't have the money to get more?: Never true Within the past 12 months, did you worry whether your food would run out before you got money to buy more?: Never true Do you have trouble paying for medicines?: No Do you have trouble getting transportation to medical appointments?: No Do you have trouble paying your heating and electricity bill?: No Do you have trouble taking care of your child, family member or friend?: No Do you have trouble with day-to-day activities such as bathing, preparing meals, shopping, managing finances, etc.?: No Are you currently unemployed and looking for a job?: No Are you interested in more education?: No Please select the resources that you would like help with: None Currently or been in a relationship where the following occur: No concerns reported THRIVE Score: 0 AUDIT C Alcohol Use Questionnaire (AUDIT-C) 1. How often do you have a drink containing alcohol?: 2-4 times a month 2. How many drinks containing alcohol do you have on a typical day when you are drinking?: 1 or 2 3. How often do you have six or more drinks on one occasion?: Never Total Score: 2 MARCELINA-7 AMB Questionnaire MARCELINA-7 Date MARCELINA - 7 assessed: 12/17/24 Feeling nervous, anxious, or on edge: 1 = Several days Not being able to stop or control worryin = Not at all Worrying too much about different things: 0 = Not at all Trouble relaxin = Not at all Being so restless that it is hard to sit still: 0 = Not at all Becoming easily annoyed or irritable: 0 = Not at all Feeling afraid as if something awful might happen: 0 = Not at all Total MARCELINA-7 score (0-4 normal; 5-9 mild; 10-14 moderate; 15-21 severe): 1 Source: Developed by Drs. Ramiro Hendricks, Pat Medrano, Tavares Hodgson and colleagues, with an educational indy from [employer]. Physical exam (Primary Care) Vital Signs: Last Vital Signs Pulse 71 12/17/24 09:55 BP 110/62 12/17/24 09:55 Pulse Ox 98 12/17/24 09:55 Oxygen Delivery Method Room Air 12/17/24 09:55 Care Plan Goal for BP management: No conjunctival hemorrhage noted mild left punctum swelling on eye exam BMI result Body Mass Index 25.4 Tobacco/Smoking Status: Tobacco use Status Tobacco use date assessed 12/17/24 12/17/24 10:02 Patient Tobacco Use Status Never used Tobacco 12/17/24 10:02 Tobacco use type Cigarette 12/17/24 10:02 e-Cigarette/Vaping Use Never Used 12/17/24 10:02 PHQ-9: PHQ-9 Score PHQ-9: Total score 4 12/17/24 10:02 Depression Screening Interpretation: Positive Thrive Assessment: Date of Thrive Assessment Date Thrive assessed 12/17/24 12/17/24 10:02 Currently or been in a relationship where the following occur: No concerns reported Const General: alert; No acute distress Eyes Conjunctivae: conjunctivae normal Resp Auscultation: clear to auscultation bilaterally Cardio Rate: regular rate Rhythm: regular rhythm GI Inspection: Yes normal to inspection Extrem General: Yes normal to inspection and No edema Coding Level of Care Code Est Pt Level 3 (97007) Diagnoses Acute rupture of Achilles tendon S86.019A Conjunctiva disorder H11.9 Swelling of lacrimal duct with fluid H04.89 Assessment & Plan Assessment & Plan (1) Acute rupture of Achilles tendon: Comment: Left 06/2024 In her recovery process, wearing boot, getting physical therapy in [place]. Code(s): S86.019A - Strain of unspecified Achilles tendon, initial encounter Category: Medical Plan: 5 .5 month better no need for surgery (2) Conjunctiva disorder: Code(s): H11.9 - Unspecified disorder of conjunctiva Category: Medical (3) Swelling of lacrimal duct with fluid: Comment: left Code(s): H04.89 - Other disorders of lacrimal system Category: Medical Plan History of Present Illness The patient is a 34-year-old female presenting with an eye infection and concerns regarding residual symptoms. The patient experienced an eye infection approximately one month ago, for which she sought care at an urgent care facility. She was prescribed amoxicillin and an ointment, which led to improvement by the third day of treatment. However, she continues to experience residual redness and swelling in the lower lid of the left eye. The patient has a history of a left Achilles tendon rupture, which occurred on July 12, 2024. She was referred to an computer network specialist and was managed with a custom-molded posterior splint in plantar flexion, avoiding the need for surgery. The patient reports being approximately five and a half months into recovery. The patient's last blood work in May 2023 showed normal results except for low vitamin D levels. Health Maintenance - Vitamin D supplementation discussed due to low levels in previous blood work. Social History Review of Systems - Ophthalmologic: Reports residual redness and swelling in the lower lid of the left eye. Denies blurred vision currently, but experienced it two weeks ago. - Respiratory: Reports mild congestion. Denies sneezing or significant nasal symptoms. Physical Exam Results - Labs: Normal blood count, electrolytes, renal function, blood sugar, liver function, and thyroid function. Low vitamin D levels noted. Plan The patient will be referred to an injection specialist for further evaluation of the persistent eye symptoms, as scheduling with local specialists may take time. In the interim, the patient is advised to use allergy medications to manage congestion and potential eye irritation. For the left Achilles tendon rupture, the patient will continue with the current recovery plan, as surgical intervention was not required. The patient is approximately five and a half months into recovery and should continue with follow-up as needed. Vitamin D supplementation is recommended due to previously noted low levels. Patient was informed and verbally consented to the use of an ambient scribe for clinic note documentation during this visit. Discussion Notes I discussed with the patient the need for an ophthalmology referral due to the persistent eye symptoms, emphasizing the potential delay in scheduling with local specialists. We also talked about using allergy medications to alleviate congestion and eye irritation. Regarding the Achilles tendon rupture, I confirmed that the current non-surgical management is appropriate and encouraged continued follow-up. I recommended vitamin D supplementation due to low levels identified in previous blood work. Patient Instructions - Follow up with an injection specialist for persistent eye symptoms. - Use allergy medications to help with congestion and eye irritation. - Continue with the current recovery plan for the Achilles tendon rupture. - Start vitamin D supplementation as discussed. Orders: Referrals Ophthalmology Referral H04.89 - Other disorders of lacrimal system, H11.9 - Unspecified disorder of conjunctiva
[2024-12-17 09:55] VITALS: BP 110/62; PULSE 71; O2SAT 98; BMI 25.4
== END 2024-12-17 10:23 | disposition home or self-care (01) ==
LOC: HO.HMCH 09:53
PROVIDERS: PCP Internal Medicine; Visit Provider Internal Medicine
DX: S86.019A Strain of unspecified Achilles tendon, initial encounter (principal); H11.9 Unspecified disorder of conjunctiva; H04.89 Other disorders of lacrimal system

== ENCOUNTER → 2024-12-17 09:52 | Outpatient (BNVA) | payer OTHER, SELFPAY | PROVIDERS: PCP Internal Medicine; Visit Provider Internal Medicine | DX: S86.012D Strain of left Achilles tendon, subsequent encounter (principal); H11.9 Unspecified disorder of conjunctiva; H04.89 Other disorders of lacrimal system; X58.XXXD Exposure to other specified factors, subsequent encounter | CPT/HCPCS: 99212 ==

== ENCOUNTER 2025-04-14 17:39 | Outpatient (AMB) | payer BC, SELFPAY ==
--- OUTSIDE RECORDS SUMMARY | 2024-07-12 15:20 | XMS_ITS | Encounter Summary ---
Author Organization [facility] Address [address] [place] [id number] Phone Care Team Providers Care Pantograph Machine Set Up Operator Name Role Phone Krystle Vasquez MD Primary Care Provider [phone] Encounter Details Date Type Department Care Team (Late st Contact Info) Description 07/12/2024 4:20 PM EDT Hospital Encounter [facility] [address] [place] [id number] Jolene Parada, MACHINE DEICER ELEMENT WINDER [address] [place] [address] [email or web address] Social History Tobacco Use Types Packs/Day Years Used Date Smoking Tobacco: Never Smokeless Tobacco: Never Alcohol Use Standard Drinks/Week Comments Not Currently 0 (1 standard drink = 0.6 oz pur e alcohol) Education Answer Date Recorded Are you interested in more education? Not on marco e 07/12/2024 Are you concerned about learning? Not on file 07/12/2024 No 07/12/2024 No 07/12/2024 Digital Access Answer Date Recorded No 07/12/2024 No 07/12/2024 Reliable internet access at home? Not on file 07/12/2024 Device with a working camera? Not on file Comments No Sex and Gender Information Value Date Recorded Sex Assigned at Female 07/17/2024 5:09 PM EDT Legal Sex Female 4:03 PM EDT Gender Identity Female 07/17/2024 5:09 PM EDT Sexual Orientation Straight 07/17/2024 5: 09 PM EDT documented as of this encounter Plan of Treatment Not on file documented as of this encounter Procedures Procedure Name Priority Date/Time Associated Diagnosis Comments XR ANKLE 3 OR MORE VIEWS (LEFT) Urgent/patient waiting 07/12/2024 4:27 PM EDT Acute left ankle pain documented in this encounter Results * XR ANKLE 3 OR MORE VIEWS (LEFT) (07/12/2024 4:27 PM EDT) Anatomical Region Laterality Modality Ankle Left Computed Radiogr aphy 07/12/2024 5:06 PM EDT Impressions 07/12/2024 5:08 PM EDT No fracture or dislocation. Narrative 07/12/2024 5:08 PM EDT XR ANKLE 3 OR MORE VIEWS (LEFT) Referring clinician's provided indication for this examination in Epic: Pain COMPARISON: None FINDINGS: No fracture. Normal alignment. Symmetric ankle mortise. Normal joint spaces. No soft tissue swelling or ankle effusion. Procedure Note Eleuterio Verduzco MD - 07/12/2024 XR ANKLE 3 OR MORE VIEWS (LEFT) Referring clinician's provided indication for this examination in Epic:Pain COMPARISON: None FINDINGS: No fracture. Normal alignment. Symmetric ankle mortise. Normal jointspaces. No soft tissue swelling or ankle effusion. IMPRESSION: No fracture or dislocation. Jolene Parada MACHINE DEICER ELEMENT WINDER IMG XR LOWER EXTREMITY Final Result documented in this encounter Visit Diagnoses Not on filedocumented in this encounter Care Teams Pantograph Machine Set Up Operator Relationship Specialty Start Date End Date Krystle Vasquez MD [address] [place] [address] Drive [address] [place] [id number] PCP - General Internal Medicine 07/12/24 documented as of this encounter Additional Source Comments The information contained in this document represents components of the legal health record. It is not the complete legal health record.[facility]
--- NOTE | 2025-04-14 17:41 | A.OFFPC_ITS ---
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 She has a history of a ruptured and tender kidney. Her last visit was in November 2024. The patient is followed by ophthalmology for vitreomacular adhesion and was last seen in November. She reports non-significant floaters. She has also experienced conjunctivitis. Blood work from May showed a normal blood count, electrolytes, renal function, sugar, and liver function. At that time, her cholesterol was normal, but she had low vitamin B and vitamin D levels. Health Maintenance - The patient presents for a physical ex am. 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 Social History Results - Labs: Blood work from May revealed a normal blood count, electrolytes, renal function, sugar, and liver function. - Labs: Cholesterol was noted to be norm al, while vitamin B and vitamin D levels were low in May. [facility] Medical History (Updated 04/14/25 @ 18:30 by Krystle Vasquez MD) Well woman exam with routine gynecological exam Acute gastroenteritis Cervical cancer screening Family history of hypercholesterolemia Encounter for screening examination for sexually transmitted disease control counseling COVID-19 virus infection Family History (Updated 12/17/24 @ 09:57 by Ghazal Hilario CMA) Mother Breast cancer, Onset Age: 63 Skin cancer Father Skin cancer Social History (Updated 04/14/25 @ 18:18 by Krystle Vasquez MD) Housing: Apartment Alcohol intake: current Comment: once a month 2 drinks Patient Tobacco Use Status: Never used Tobacco Tobacco use type: Cigarette Years Smoked: no cigarettes, does marijuana. 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 Cognitive needs: No Hearing needs: No Vision needs: No Female Reproductive History Menstrual Age of Menarche: 10 Questionnaire Thrive Questionnaire Date Thrive assessed: 12/17/24 I am a: Patient What is your living situation today?: I have a steady place to live Within the past 12 months, did the food you bought not last and you didn't have the money to get more?: Never true Within the past 12 months, did you worry whether your food would run out before you got money to buy more?: Never true Do you have trouble paying for medicines?: No Do you have trouble getting transportation to medical appointments?: No Do you have trouble paying your heating and electricity bill?: No Do you have trouble taking care of your child, family member or friend?: No Do you have trouble with day-to-day activities such as bathing, preparing meals, shopping, managing finances, etc.?: No Are you currently unemployed and looking for a job?: No Are you interested in more education?: No Please select the resources that you would like help with: None Currently or been in a relationship where the following occur: No concerns reported THRIVE Score: 0 MARCELINA-7 AMB Questionnaire MARCELINA-7 Date MARCELINA - 7 assessed: 12/17/24 Source: Developed by Drs. Ramiro Hendricks, Pat Medrano, Tavares Hodgson and colleagues, with an educational indy from [employer]. Review of Systems Narrative Review of Systems - Eyes: Reports floaters not significant in nature. Const Denies poor appetite and Denies weakness Eyes Denies no additional complaints ENT Reports Normal hearing present, Denies dizziness, Denies nasal congestion, Denies tinnitus and Denies sore throat Card Denies chest pain, Denies syncope, Denies rapid heart rate and Denies dyspnea Resp Denies cough and Denies dyspnea GI Denies change in stool character, Reports constipation, Denies diarrhea, Denies nausea and Denies vomiting Denies urinary frequency, Denies difficulty voiding and Denies dysuria Neuro Reports Normal hearing present, Denies confusion, Denies dizziness, Denies syncope and Denies weakness Psych Denies confusion Physical exam (Primary Care) Vital Signs: Last Vital Signs Temp 97.3 F 04/14/25 17:43 Pulse 88 04/14/25 17:43 BP 116/56 L 04/14/25 17:43 Pulse Ox 96 04/14/25 17:43 Oxygen Delivery Method Room Air 04/14/25 17:43 BMI result Body Mass Index 24.3 Tobacco/Smoking Status: Tobacco use Status Tobacco use date assessed 12/17/24 04/14/25 17:49 Patient Tobacco Use Status Never used Tobacco 04/14/25 18:18 Tobacco use type Cigarette 04/14/25 18:18 e-Cigarette/Vaping Use Never Used 04/14/25 18:18 Thrive Assessment: Date of Thrive Assessment Date Thrive assessed 12/17/24 04/14/25 17:49 Currently or been in a relationship where the following occur: No concerns reported Narrative Physical Exam General: Cooperative, healthy appearing, comfortable, no acute distress and well developed Orientation: Patient oriented x3 Limitations: No limitations Head: Normal to inspection Ears: Hearing grossly normal bilaterally Nose: Normal external nose present Face and sinus: Normal facial exam Eyes: Appearance normal, both eyes and all related structures Neck: Normal visual inspection and Yes full ROM Respiratory: Normal respiratory effort and able to speak in complete sentences. Clear to auscultation bilaterally Cardiovascular: Regular rate and rhythm. Normal S1 and S2 GI: Normal to inspection. Soft to palpation and nontender Skin: No rashes or lesions noted Neuro: Patient oriented x3 Extremities: Normal to inspection Const General: No confusion Orientation/consciousness: No confusion HENMT Other: R ear impacted cerumen L TM intact Head: Yes normocephalic Ears: external ears normal Face and sinus: Yes normal facial exam Mouth: moist mucous membranes Throat: Yes tonsils normal Eyes Conjunctivae: conjunctivae normal Pupils: Equal, round and reactive pupils present and Pupil accommodation reflex normal Direct Ophthalmoscopy: normal light reflex Neck Neck: No lymphadenopathy Thyroid: Thyroid normal Chest Chest palpation & inspection: normal inspection of the chest Resp Effort & Inspection: normal respiratory effort and no audible wheezes Auscultation: clear to auscultation bilaterally, no crackles, no wheezes and lung sounds not diminished Cardio Rate: regular rate Rhythm: regular rhythm Peripheral pulses: radial pulses present and dorsalis pedis present GI Palpation (GI): no masses Auscultation: normal bowel sounds and normoactive bowel sounds Rectal Exam - Female: deferred Skin General skin exam: no rashes or lesions noted Rashes: no rashes Neuro General: No confusion Cranial nerves: Yes Equal, round and reactive pupils present and Yes Normal hearing present Cognition (Neuro): normal cognition Gait exam (Neuro): Normal gait present Motor exam (neuro): 5/5 motor strength present throughout Deep tendon reflexes (DTR's): Right brachioradialis reflex intensity grade: 2+, Left brachioradialis reflex intensity grade: 2+, Right patellar reflex intensity grade: 2+ and Left patellar reflex intensity grade: 2+ Extrem General: No edema Office Procedures Cerumen Removal From which ear canal was the cerumen removed: right Removal: irrigation, otoscope w/curette, cerumen loop/spoon and other Notes: patient tolerated procedure well, no complications and ear canal clear [id number] Irrigation/Lavage Coding Level of Care Code New Pt Prev Care 18-39yr(89340 Add On Preventative Visit Only Diagnoses Annual physical exam Z00.00 Impacted cerumen of right ear H61.21 CPT Codes Office Procedure - CPT: 28589-Ume Irrigation/Lavage ([id number]) Assessment & Plan Assessment & Plan (1) Annual physical exam: Code(s): Z00.00 - Encounter for general adult medical examination without abnormal findings Category: Medical (2) Impacted cerumen of right ear: Code(s): H61.21 - Impacted cerumen, right ear Category: Medical Plan: irrigation done TM intact R ear Plan Plan Patient was informed and verbally consented to the use of an ambient scribe for clinic note documentation during this visit. Discussion Notes Patient Instructions
[2025-04-14 17:43] VITALS: BP 116/56; PULSE 88; TEMP 36.3; O2SAT 96; BMI 24.3
--- OUTSIDE RECORDS SUMMARY | 2025-04-14 22:45 | XMS_ITS | Clinical Summary ---
Author Organization [facility] Address [address] [facility] [address] [facility] [address] [place] [address] Phone Care Team Providers Care Lawn Care Worker Name Role Phone Krystle Vasquez MD Primary Care Provider [phone] Allergies No known active allergies Medications No known medications Active Problems Problem Noted Date Diagnosed Date Achilles rupture, left 07/22/2024 Social History Tobacco Use Types Packs/Day Years Used Date Smoking Tobacco: Never Smokeless Tobacco: Never Tobacco Cessation:Counseling Given: Not Answered Alcohol Use Standard Drinks/Week Comments Not Currently [...] Orientation Straight 07/17/2024 5: 09 PM EDT Last Filed Vital Signs Vital Sign Reading Time Taken Comments Blood Pressure 108/74 11/04/2024 12:57 PM EDT Pulse 80 11/04/2024 12:57 PM EDT Temperature 36.8 C (98.3 F) 11/04/2024 12:57 PM EDT Respiratory Rate 16 11/04/2024 12:57 PM EDT Oxygen Saturation 97% 11/04/2024 12:57 PM EDT Inhaled Oxygen Concentration - - Weight 64 kg (141 lb) 07/22/2024 3:25 PM EDT Height 170.2 cm (5' 7 ) 07/22/2024 3:25 PM EDT Body Mass Index 22.08 07/22/2024 3:25 PM EDT Plan of Treatment Health Maintenance Due Date Last Done Comments Adult Td,Tdap Booster 1990 DEPRESSION SCREENING 2002 HEPATITIS C SCREENING 2008 HIV ONE-TIME SCREENING (18-6 5 YEARS) 2008 PAP SMEAR 07/10/2011 INFLUENZA VACCINE (#1) 2024 COVID-19 VACCINE (2024-2 6 season) 2024 SMOKING STATUS SCREENING (On ce After 26 Yrs) Completed 11/04/2024 HEPATITIS A VACCINES Aged Out No long er eligible based on patient's age to complete this topic HIB VACCINES Aged Out No longer eligi ble based on patient's age to complete this topic MENINGOCOCCAL VACCINES (ACWY) Aged Out No longer eligible based on patient's age to complete this topic MENINGOCOCCAL VACCINES (B) Aged Out N o longer eligible based on patient's age to complete this topic PNEUMOCOCCAL VACCINES (0-49 years) Aged Out No longer eligible based on patient's age to complete this topic Medical Devices Not on file Insurance [facility] OUT [facility] [employer] PPO BLUE [employer]OSS OUT OF STATE PPO BLUE [employer]OSS OUT OF STATE PPO BLUE [employer]OSS OUT OF STATE PPO BLUE [employer]OSS OUT OF STATE PPO [facility] OUT STATE PPO Care Teams Lawn Care Worker Relationship Specialty Start Date End Date Krystle Vasquez MD [address] [place] [id number] PCP - General Internal Medicine 07/12/24 Additional Source Comments The information contained in this document represents components of the legal health record. It is not the complete legal health record.[facility]
--- OUTSIDE RECORDS SUMMARY | 2025-04-14 22:45 | XMS_ITS | Encounter Summary ---
Author Organization [facility] Address [address] [place] [address] Phone Care Team Providers Care Inspector Multifocal Lens Name Role Phone Kyrstle Vasquez MD Primary Care Provider [phone] Encounter Details Date Type Department Care Team (Late st Contact Info) Description 07/15/2024 Procedure Pass [address] [place] [address] Social History Tobacco Use Types Packs/Day Years Used Date Smoking Tobacco: Never Assessed Education Answer Date Recorded Are you interested [...] on file documented as of this encounter Visit Diagnoses Not on filedocumented in this encounter Care Teams Inspector Multifocal Lens Relationship Specialty Start Date End Date Krystle Vasquez MD [address] [place] [address] PCP - General Internal Medicine 07/12/24 documented as of this encounter Additional Source Comments The information contained in this document represents components of the legal health record. It is not the complete legal health record.[facility]
== END 2025-04-14 18:36 | disposition home or self-care (01) ==
LOC: HO.HMCH 17:39
PROVIDERS: PCP Internal Medicine; Visit Provider Internal Medicine
DX: Z00.00 Encounter for general adult medical examination without abnormal findings (principal); H61.21 Impacted cerumen, right ear

== ENCOUNTER → 2025-04-14 17:39 | Outpatient (BNVA) | payer BC, SELFPAY | PROVIDERS: PCP Internal Medicine; Visit Provider Internal Medicine | DX: Z00.00 Encounter for general adult medical examination without abnormal findings (principal); H61.21 Impacted cerumen, right ear | CPT/HCPCS: 69210 ==